=== PATIENT | male | born 1950 | race Caucasian/White ===

== ENCOUNTER → 2017-01-11 | Emergency (ER) | payer OTHER ==
[~2017-01-11] MED LIST: CEFTRIAXONE 1 GM in DEXTROSE 5%-WATER - 50 ML IVPB ONE; KETOROLAC TROMETHAMINE 15 MG/ML VIAL IVPUSH ONE; KETOROLAC TROMETHAMINE 30 MG/1 ML VIAL IVPUSH ONE; KETOROLAC TROMETHAMINE 30 MG/1 ML VIAL ONE; cefTRIAXone SODIUM 1 GM VIAL ONE; morphine CARPU-JECT 10 MG/1 ML DISP.SYRIN ONE; morphine CARPU-JECT 2 MG/1 ML DISP.SYRIN IVPUSH ONE
[2017-01-11 11:41] VITALS: BMI 31.7
--- NOTE | 2017-01-11 12:04 | PDOC ---
History of Present Illness - General Chief Complaint: Injury Stated Complaint: FALL, BACK PAIN Time Seen by Provider: 01/11/17 11:40 - History of Present Illness Initial Comments: 01/11/17 11:57 66-year-old male with a past medical history of hypertension, diabetes, with gastroparesis, hypothyroidism, and kidney stones Patient states that on Tuesday, 5 days ago, he was taking out the trash and walking up the stairs, when he slipped and fell He states he fell down 5 steps and landed on his right side, and also struck the right side of his head There was no loss of consciousness and is not having any headache at this time or concussion symptoms He is complaining of some right-sided lower back pain, which is been gradually progressive since the fall He states he did not feel the pain immediately after the fall, but is been gradually getting worse since the fall He denies any bowel or bladder symptoms He denies any numbness or tingling in his legs He denies any hematuria He denies any difficulty walking He denies any associated abdominal pain He denies any fevers or chills He denies any cancer history, or recent urinary tract instrumentation He denies any focal neurologic complaints He denies any other complaints at this time Past History - Past Medical History Allergies/Adverse Reactions: Allergies Allergy/AdvReac Type Severity Reaction Status Date / Time polymyxin B [Polymyxin B] Allergy Severe NUMNBESS Verified 01/11/17 11:34 insulin glulisine Allergy Verified 01/11/17 18:58 [From Apidra] insulin lispro [From Humalog] Allergy Verified 01/11/17 18:58 Home Medications: Ambulatory Orders Allopurinol [Zyloprim -] 100 mg PO HS 01/11/17 Cholecalciferol (Vitamin D3) [Vitamin D3 -] 2,000 unit PO DAILY 01/11/17 Cranberry Conc/Ascorbic Acid [Cranberry Concentrate Softgel] 1 each PO BID 01/11 Finasteride 5 mg PO DAILY 01/11/17 Glimepiride 2 mg PO DAILY 01/11/17 Hydrochlorothiazide [Hctz -] 25 mg PO ASDIR 01/11/17 Insulin Glargine,Hum.rec.anlog [Touwalter Solostar] 20 unit SQ ASDIR 01/11/17 Levothyroxine [Synthroid -] 25 mcg PO DAILY 01/11/17 Metformin HCl 500 mg PO BID 01/11/17 Potassium Citrate [Urocit-K 10 (NF)] 2 tab PO BID 01/11/17 Tamsulosin HCl [Flomax] 0.4 mg PO HS 01/11/17 Ubidecarenone/Vitamin E Mixed [Txs91-Kro E 200 mg-20 Unit Sfg] 1 each PO DAILY 01/11/17 Vit C/E/Zn/Coppr/Lutein/Zeaxan [Preservision Areds 2 Softgel] 1 each PO BID Anemia: No Asthma: No Cancer: No Cardiac Disorders: No COPD: No Diabetes: Yes (on oral agents) GI Disorders: Yes Disorders: Yes (kidney stones, bph) HTN: No (call was placed on 12.5 mg of hydrochlorothiazide prophylactically by his p) Kidney Stones: Yes (status post lithotripsy in 2009 and 2010) - Surgical History Orthopedic Surgery: Yes (meniscus repair left knee) - Psycho/Social/Smoking Cessation Hx Anxiety: No Suicidal Ideation: No Smoking Status: No Smoking History: Never smoked Have you smoked in the past 12 months: No Number of Cigarettes Smoked Daily: 0 If you are a former smoker, when did you quit?: 1995 Information on smoking cessation initiated: No Hx Alcohol Use: No Drug/Substance Use Hx: No Substance Use Type: None Hx Substance Use Treatment: No Review of Systems - Review of Systems Able to Perform ROS?: Yes Comments:: 01/11/17 12:04 Review of systems is as per history of present illness and otherwise negative *Physical Exam - Vital Signs Last Vital Signs Temp Pulse Resp BP Pulse Ox 98.1 F 88 18 151/83 99 01/11/17 11:30 01/11/17 11:30 01/11/17 11:30 01/11/17 11:30 01/11/17 11:30 - Physical Exam Comments: 01/11/17 12:05 Physical exam Last Vital Signs Temp Pulse Resp BP Pulse Ox 98.1 F 88 18 151/83 99 01/11/17 11:30 01/11/17 11:30 01/11/17 11:30 01/11/17 11:30 01/11/17 11:30 Patient is alert and ambulatory, and walking without difficulty Head is normocephalic and atraumatic There is no C-spine T-spine tenderness There is some R sided LS spine tenderness There is no posterior rib tenderness There is right lower paraspinal tenderness below the flank area There is no CVA tenderness There is tenderness along the posterior iliac crest without any bruising seen No bruising is seen anywhere on the back or mid axillary line The abdomen is completely soft and nontender Motor strength is 5 out of 5 in the lower extremities bilaterally There is full dorsiflexion and plantar flexion of the feet bilaterally Sensation is intact in the lower extremities bilaterally Gait is normal Completely nonfocal neurologic exam ED Treatment Course - LABORATORY CBC & Chemistry Diagram: 01/11/17 12:55 01/11/17 12:55 - RADIOLOGY Radiology Studies Ordered: Category Date Time Status PELVIS [RAD] Stat Radiology 01/11/17 11:56 Ordered RIBS RIGHT SIDE [RAD] Stat Radiology 01/11/17 11:56 Ordered SPINE-LUMBAR SACRAL [RAD] Stat Radiology 01/11/17 11:56 Ordered Medical Decision Making - Medical Decision Making 01/11/17 14:22 Fall with musculoskeletal injury He does have a history of prior kidney infection All prior urine and blood cultures reviewed and were negative No CVA tenderness on exam Right rib series No rib fracture is seen No pulmonary disease 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 Multilevel DJD No fracture Pelvis series No acute bony abnormality seen Laboratory Results - last 24 hr 01/11/17 01/11/17 01/11/17 11:58 12:55 12:55 WBC 6.2 RBC 4.51 Hgb 13.4 Hct 40.6 MCV 90.0 MCHC 32.9 RDW 12.4 Plt Count 153 MPV 8.9 Sodium 134 L Potassium 3.8 Chloride 99 Carbon Dioxide 26 Anion Gap 9 BUN 23 H D Creatinine 0.9 Creat Clearance w eGFR > 60 Random Glucose 171 H Calcium 9.6 Total Bilirubin 0.4 D AST 20 ALT 21 D Alkaline Phosphatase 45 Total Protein 6.6 Albumin 3.9 Urine Color Yellow Urine Appearance Sl cloudy Urine pH 5.5 Ur Specific [place] 1.015 Urine Protein Negative Urine Glucose (UA) Negative Urine Ketones Negative Urine Blood Trace H Urine Nitrite Negative Urine Bilirubin Negative Urine Urobilinogen 0.2 e.u/dl Ur Leukocyte Esterase 1+ H Urine RBC 0-3 Urine WBC 3-5 Ur Epithelial Cells Few Urine Bacteria Moderate UA with reports of "moderate" bacteria, however 0-3 reds and 3-5 white cells CBC and CMP normal without elevated white count Will check CT scan of the abdomen and pelvis to look for evidence of pyelonephritis, and check spine due to tenderness Patient is on metformin, would not give IV contrast at this time 01/11/17 15:52 CT scan of the abdomen and pelvis- The right kidney shows a 1.4 cm cyst, and medial to it a stone measuring 5-6 mm , with an area of adjacent scarring This is similar to the appearance of his kidney on a prior scan There is no hydronephrosis and no obstruction There is a possible fracture line involving the L2 vertebral body without displacement, not seen on prior exam-MRI of the L-spine recommended The radiologist commented that he attempted to call me in the emergency department to discuss the case I did call the radiologist, who states that the cider press operator was transferring him to a number that was ringing and not being answered No calls were received from this radiologist here at [facility] ED, but I did call radiologist myself and speak to him Will get MRI of the lumbar spine 01/11/17 18:20 MRI of the lumbar spine without contrast There is an L2 fracture, anteriorly/superiorly, with bone marrow edema, and without compromise of the spinal canal There is also bone marrow edema in the upper one third of the L3 vertebral body , mainly on the right side, that may be due to degenerative disc disease versus minimal compression of the L3 superior endplate There is multilevel disc disease and bulging With some nerve impingement There is mild degenerative central spinal canal stenosis at the L4-L5 level 01/11/17 18:[address] Zapien -[facility] - accepts patient in transfer to [facility] Will arrange ALS transport *DC/Admit/Observation/Transfer Diagnosis at time of Disposition: Compression fracture of L3 lumbar vertebra L2 vertebral fracture Qualifiers: Encounter type: initial encounter - Discharge Dispostion Disposition: TRANSFER ACUTE CARE/OTHER HOSP Condition at time of disposition: Stable - Referrals Referrals: Tom Palmer MD [Primary Care Provider] - - Transfer to Acute Care Facility Receiving Facility: [facility]. Accepting Physician:: Dr Zapien - Neurosurg./Spine surg.
[2017-01-11 12:09] LABS: PH,URINE 5.5 (4.5-8); URINE BILIRUBIN Negative (NEGATIVE); URINE GLUCOSE (UA) Negative (NEGATIVE); URINE KETONE Negative (NEGATIVE); URINE NITRITE Negative (NEGATIVE); URINE PROTEIN Negative (NEGATIVE); URINE UROBILINOGEN 0.2 E.U/dl (0.2-1.0)
[2017-01-11 12:10] LABS: URINE APPEARANCE SL CLOUDY; URINE COLOR YELLOW; URINE LEUK ESTERASE 1+ (NEGATIVE)
[2017-01-11 12:11] LABS: URINE BLOOD TRACE (NEGATIVE); URINE RBC 0-3 /hpf (0-3)
[2017-01-11 12:12] LABS: URINE BACTERIA MODERATE /hpf (NEGATIVE)
[2017-01-11 13:02] LABS: MCH 29.6 pg (25.7-33.7); MCHC 32.9 g/dl (32.0-35.9); MEAN PLT VOLUME 8.9 fl (7.5-11.1); PLATELET COUNT 153 K/MM3 (134-434); RDW 12.4 % (11.9-15.9); WHITE BLOOD COUNT 6.2 K/mm3 (4.0-10.0)
[2017-01-11 13:19] LABS: ALBUMIN 3.9 g/dl (3.5-5.0); ALK PHOS 45 U/L (32-92); ANION GAP 9 (8-16); BILIRUBIN,TOTAL 0.4 mg/dl (0.2-1.0); CALCIUM 9.6 mg/dl (8.4-10.2); CO2 26 mmol/L (22-28); CREATININE 0.9 mg/dl (0.6-1.3); GLUCOSE,RANDOM 171 mg/dl (74-106); SGOT/AST 20 U/L (10-42); SGPT/ALT 21 U/L (10-40); TOT PROT 6.6 g/dl (6.4-8.3)
[2017-01-11 20:10] VITALS: BP 132/76; PULSE 81; TEMP 98.1
== END | disposition short-term general hospital (02) ==
LOC: SUPCPDRO 11:30 → FER 11:30
PROC: 3E03329 Introduction of Other Anti-infective into Peripheral Vein, Percutaneous Approach (ICD-10-PCS; principal; 2017-01-11)
PROC: 3E033GC Introduction of Other Therapeutic Substance into Peripheral Vein, Percutaneous Approach (ICD-10-PCS; 2017-01-11)
PROC: 3E033NZ Introduction of Analgesics, Hypnotics, Sedatives into Peripheral Vein, Percutaneous Approach (ICD-10-PCS; 2017-01-11)
PROC: 3E0333Z Introduction of Anti-inflammatory into Peripheral Vein, Percutaneous Approach (ICD-10-PCS; 2017-01-11)
DX: S32.039A Unspecified fracture of third lumbar vertebra, initial encounter for closed fracture (principal); I10 Essential (primary) hypertension; E11.9 Type 2 diabetes mellitus without complications; E03.9 Hypothyroidism, unspecified; Z87.442 Personal history of urinary calculi; Z87.891 Personal history of nicotine dependence
CPT/HCPCS: 36415; 71101-TC-RT; 72100-TC; 72148-TC; 72170-TC; 74176-TC; 80053; 81003; 81015; 85027; 87086; 99285-25

== ENCOUNTER 2018-01-09 19:54 | Emergency (ER) | payer OTHER ==
--- NOTE | 2018-01-09 20:19 | PDOC ---
Rapid Medical Evaluation Time Seen by Provider: 01/09/18 20:15 Medical Evaluation: Allergies Allergy/AdvReac Type Severity Reaction Status Date / Time polymyxin B [Polymyxin B] Allergy Severe NUMNBESS Verified 01/11/17 11:34 insulin glulisine Allergy Verified 01/11/17 18:58 [From Apidra] insulin lispro [From Humalog] Allergy Verified 01/11/17 18:58 01/09/18 20:16 I have performed a brief in-person evaluation of this patient. The patient presents with a chief complaint of: slip and fall yesterday morning in driveway, denies injury to head, no LOC, not taking a/c, hit R side of stomach, R leg "is numb", R groin pain, hx of chronic back pain "nothing new " Pertinent physical exam findings: tenderness to R hip I have ordered the following: hip/pelvix x-ray The patient will proceed to the ED for further evaluation. Discharge Disposition - Diagnosis Fall - Referrals - Patient Instructions - Post Discharge Activity
[2018-01-09 20:24] VITALS: BP 123/77; PULSE 115; TEMP 98.8; BMI 29.2
[2018-01-09 20:37] LABS: HEMATOCRIT 43.4 % (35.4-49); HEMOGLOBIN 14.8 GM/dL (11.7-16.9); MCH 30.8 pg (25.7-33.7); MCHC 34.1 g/dl (32.0-35.9); MEAN CELL VOLUME 90.4 fl (80-96); MEAN PLT VOLUME 9.2 fl (7.5-11.1); PLATELET COUNT 154 K/MM3 (134-434); RDW 13.9 % (11.9-15.9); WHITE BLOOD COUNT 17.5 K/mm3 (4.0-10.0)
[2018-01-09 20:39] LABS: URINE APPEARANCE CLOUDY; URINE BILIRUBIN NEGATIVE (NEGATIVE); URINE BLOOD 2+ (NEGATIVE); URINE COLOR YELLOW; URINE GLUCOSE (UA) 1+ (NEGATIVE); URINE KETONE TRACE (NEGATIVE); URINE NITRITE POSITIVE (NEGATIVE); URINE UROBILINOGEN NEGATIVE mg/dL (0.2-1.0)
[2018-01-09 20:40] LABS: URINE LEUK ESTERASE 2+ (NEGATIVE); URINE PROTEIN 1+ (NEGATIVE)
[2018-01-09 20:40] LABS: ADD RBC MORPHOLOGY YES
[2018-01-09 20:56] LABS: EPI CELLS FEW /HPF (FEW); URINE BACTERIA FEW /hpf (NONE SEEN); URINE MUCUS MODERATE
[2018-01-09 20:57] LABS: INR 1.24 (0.82-1.09)
[2018-01-09 21:07] LABS: ALBUMIN 3.7 g/dl (3.4-5.0); ANION GAP 9 (8-16); BLOOD UREA NITROGEN 10 mg/dL (7-18); CALCIUM 8.2 mg/dL (8.5-10.1); CHLORIDE 100 mmol/L (98-107); CO2 26 mmol/L (21-32); GLUCOSE,RANDOM 167 mg/dL (74-106); POTASSIUM 4.1 mmol/L (3.5-5.1); SODIUM 135 mmol/L (136-145)
[2018-01-09 21:11] LABS: ALK PHOS 62 U/L (45-117); SGOT/AST 9 U/L (15-37); SGPT/ALT 14 U/L (12-78); TOT PROT 7.3 g/dl (6.4-8.2)
[2018-01-09] MEDS ORDERED: MORPHINE SULFATE 10 MG/1 ML *VIAL ONE (21:38)
[2018-01-09] MEDS ORDERED: morphine CARPU-JECT 2 MG/1 ML DISP.SYRIN IVPUSH ONE (21:47)
[2018-01-09] MEDS ORDERED: SODIUM CHLORIDE 1,000 ML IV STA (21:49)
[2018-01-09 22:00] LABS: PLATELET ESTIMATE ADEQUATE
--- NOTE | 2018-01-09 23:03 | PDOC ---
History of Present Illness - General History Source: Patient Exam Limitations: No Limitations - History of Present Illness Initial Comments: 01/09/18 23:17 The patient is a 67 year old male, with a significant past medical history of, who presents to the emergency department with pain to right lower abdominal quadrant, right hip, and right leg, as well as, pain and swelling to right groin since falling on ice yesterday. The patient states he slipped and fell on an icy road yesterday. He reports landing onto his right side without head trauma or LOC. He reports pain to his right lower abdomen and right hip. He also reports pain to his right leg with some associated intermittent numbness The patient denies chest pain, shortness of breath, headache and dizziness. The patient denies fever, chills, nausea, vomit, diarrhea and constipation. The patient denies dysuria, frequency, urgency and hematuria. PCP - Dr. Tom Palmer <Roseanne Gunter - Last Filed: 01/10/18 01:18> <Nakita Perez - Last Filed: 01/10/18 01:58> - General Chief Complaint: Injury Stated Complaint: PAIN Time Seen by Provider: 01/09/18 20:15 Past History <Roseanne Gunter - Last Filed: 01/10/18 01:18> - Past Medical History Anemia: No Asthma: No Cancer: No Cardiac Disorders: No COPD: No Diabetes: Yes (on oral agents) GI Disorders: Yes Disorders: Yes (kidney stones, bph) HTN: No (call was placed on 12.5 mg of hydrochlorothiazide prophylactically by his p) Kidney Stones: Yes (status post lithotripsy in 2009 and 2010) Thyroid Disease: Yes - Surgical History Orthopedic Surgery: Yes (meniscus repair left knee) - Immunization History Immunization Up to Date: No - Suicide/Smoking/Psychosocial Hx Smoking Status: No Smoking History: Never smoked Have you smoked in the past 12 months: No Number of Cigarettes Smoked Daily: 0 If you are a former smoker, when did you quit?: 1995 Information on smoking cessation initiated: No Hx Alcohol Use: No Drug/Substance Use Hx: No Substance Use Type: None Hx Substance Use Treatment: No <Nakita Perez - Last Filed: 01/10/18 01:58> - Past Medical History Allergies/Adverse Reactions: Allergies Allergy/AdvReac Type Severity Reaction Status Date / Time polymyxin B [Polymyxin B] Allergy Severe NUMNBESS Verified 01/11/17 11:34 insulin glulisine Allergy Verified 01/11/17 18:58 [From Apidra] insulin lispro [From Humalog] Allergy Verified 01/11/17 18:58 Home Medications: Ambulatory Orders Allopurinol [Zyloprim -] 100 mg PO HS 01/11/17 Cholecalciferol (Vitamin D3) [Vitamin D3 -] 2,000 unit PO DAILY 01/11/17 Cranberry Conc/Ascorbic Acid [Cranberry Concentrate Softgel] 1 each PO BID 01/11 Finasteride 5 mg PO DAILY 01/11/17 Glimepiride 2 mg PO DAILY 01/11/17 Hydrochlorothiazide [Hctz -] 25 mg PO ASDIR 01/11/17 Insulin Glargine,Hum.rec.anlog [Toujeo Solostar] 20 unit SQ ASDIR 01/11/17 Levothyroxine [Synthroid -] 25 mcg PO DAILY 01/11/17 Metformin HCl 500 mg PO BID 01/11/17 Potassium Citrate [Urocit-K 10 (NF)] 2 tab PO BID 01/11/17 Tamsulosin HCl [Flomax] 0.4 mg PO HS 01/11/17 Ubidecarenone/Vitamin E Mixed [Yrq59-Zix E 200 mg-20 Unit Sfg] 1 each PO DAILY 01/11/17 Vit C/E/Zn/Coppr/Lutein/Zeaxan [Preservision Areds 2 Softgel] 1 each PO BID levoFLOXacin [Levaquin -] 500 mg PO DAILY #7 tablet 01/10/18 Review of Systems - Review of Systems Able to Perform ROS?: Yes Comments:: 01/09/18 23:15 CONSTITUTIONAL: Absent: fever, chills, diaphoresis, generalized weakness, malaise, loss of appetite HEENT: Absent: rhinorrhea, nasal congestion, throat pain, throat swelling, difficulty swallowing, mouth swelling, ear pain, eye pain, visual Changes CARDIOVASCULAR: Absent: chest pain, syncope, palpitations, irregular heart rate, lightheadedness , peripheral edema RESPIRATORY: Absent: cough, shortness of breath, dyspnea with exertion, orthopnea, wheezing, stridor, hemoptysis GASTROINTESTINAL: (+) RLQ pain. Absent: abdominal distension, nausea, vomiting, diarrhea, constipation, melena, hematochezia GENITOURINARY: Absent: dysuria, frequency, urgency, hesitancy, hematuria, flank pain, genital pain MUSCULOSKELETAL: (+) right hip and leg pain with intermittent right leg numbness. Absent: arthralgia, joint swelling SKIN: Absent: rash, itching, pallor HEMATOLOGIC/IMMUNOLOGIC: Absent: easy bleeding, easy bruising, lymphadenopathy, frequent infections ENDOCRINE: Absent: unexplained weight gain, unexplained weight loss, heat intolerance, cold intolerance NEUROLOGIC: Absent: headache, focal weakness, dizziness, unsteady gait, seizure, mental status changes, bladder or bowel incontinence PSYCHIATRIC: Absent: anxiety, depression, suicidal or homicidal ideation, hallucinations. <Roseanne Gunter - Last Filed: 01/10/18 01:18> *Physical Exam - Vital Signs Last Vital Signs Temp Pulse Resp BP Pulse Ox 98.8 F 115 H 20 123/77 98 01/09/18 20:20 01/09/18 20:20 01/09/18 20:20 01/09/18 20:20 01/09/18 20:20 - Physical Exam Comments: 01/09/18 23:16 GENERAL: Well developed, well nourished. Awake and alert. No acute distress. HEENT: Normocephalic, atraumatic. PERRLA, EOMI. No conjunctival pallor. Sclera are non- icteric. Moist mucous membranes. Oropharynx is clear. NECK: Supple. Full ROM. No JVD. Carotid pulses 2+ and symmetric, without bruits. No thyromegaly. No lymphadenopathy. CARDIOVASCULAR: Regular rate and rhythm. No murmurs, rubs, or gallops. Distal pulses are 2+ and symmetric. PULMONARY: No evidence of respiratory distress. Lungs clear to auscultation bilaterally. No wheezing, rales or rhonchi. ABDOMINAL: Soft. Non-tender. Non-distended. No rebound or guarding. No organomegaly. Normoactive bowel sounds. MUSCULOSKELETAL (+) pain to palpation of L5 region, pain with right leg raise. Normal range of motion at all joints. No bony deformities. No CVA tenderness. EXTREMITIES: No cyanosis. No clubbing. No edema. No calf tenderness. SKIN: (+) 3cm area of ecchymosis to right lower abdomen. Warm and dry. Normal capillary refill. No rashes. No jaundice. NEUROLOGICAL: Alert, awake, appropriate. Cranial nerves 2-12 intact. Normoreflexic in the upper and lower extremities. Normal speech. Toes are down-going bilaterally. Gait is normal without ataxia. PSYCHIATRIC: Cooperative. Good eye contact. Appropriate mood and affect. <Roseanne Gunter - Last Filed: 01/10/18 01:18> - Vital Signs Last Vital Signs Temp Pulse Resp BP Pulse Ox 98.8 F 115 H 20 123/77 98 01/09/18 20:20 01/09/18 20:20 01/09/18 20:20 01/09/18 20:20 01/09/18 20:20 <Nakita Perez - Last Filed: 01/10/18 01:58> ED Treatment Course - LABORATORY CBC & Chemistry Diagram: 01/09/18 20:28 01/09/18 20:28 - ADDITIONAL ORDERS Additional order review: Laboratory Results 01/09/18 01/09/18 01/09/18 20:33 20:28 20:28 PT with INR 14.00 H INR 1.24 H Sodium 135 L Potassium 4.1 Chloride 100 Carbon Dioxide 26 Anion Gap 9 BUN 10 Creatinine 1.0 Creat Clearance w eGFR > 60 Random Glucose 167 H D Calcium 8.2 L Total Bilirubin 1.0 D AST 9 L ALT 14 D Alkaline Phosphatase 62 Creatine Kinase 41 Troponin I < 0.02 Total Protein 7.3 Albumin 3.7 Urine Color Yellow Urine Appearance Cloudy Urine pH 7.0 Ur Specific [place] 1.018 Urine Protein 1+ H Urine Glucose (UA) 1+ H Urine Ketones Trace H Urine Blood 2+ H Urine Nitrite Positive Urine Bilirubin Negative Urine Urobilinogen Negative Ur Leukocyte Esterase 2+ H Urine WBC (Auto) 576 Urine RBC (Auto) 220 Ur Epithelial Cells Few Urine Bacteria Few Urine Mucus Moderate 01/09/18 20:28 RBC 4.80 MCV 90.4 MCHC 34.1 RDW 13.9 MPV 9.2 Neutrophils % No Result Required. Lymphocytes % No Result Required. - RADIOLOGY Radiograph Interpretation: EXAM: CT abdomen and pelvis without contrast HISTORY: Pain. Patient fell. COMPARISON: None. FINDINGS: No bowel obstruction, free air, or free fluid. There is left colon and sigmoid diverticulosis. No diverticulitis or colitis. Normal appendix. Nonobstructing right renal stone and right renal cyst. No renal ureteral obstruction. Urinary bladder is somewhat distended. No acute abnormalities of the liver, spleen, pancreas, adrenal glands. No obvious gallbladder abnormalities. Osseous structures are intact. Ki Galan MD 01/10/2018 00:42 EST EXAM: LUMBAR SPINE CT W/O CONTRAST HISTORY: L5 pain COMPARISON: None. FINDINGS: Negative for lumbar spinal fracture or malalignment. Degenerative changes. Ki Galan MD 01/10/2018 01:13 EST - Medications Given in the ED: ED Medications Discontinued Medications Generic Name Dose Route Start Last Admin Trade Name Freq PRN Reason Stop Dose Admin Sodium Chloride 1,000 mls @ 1,000 mls/hr 01/09/18 21:49 01/09/18 21:54 Normal Saline - IV 01/09/18 22:48 1,000 mls/hr ASDIR STA Administration Morphine Sulfate 2 mg 01/09/18 21:47 01/09/18 21:54 Morphine Injection - IVPUSH 01/09/18 21:48 2 mg ONCE ONE Administration <Roseanne Gunter - Last Filed: 01/10/18 01:18> - LABORATORY CBC & Chemistry Diagram: 01/09/18 20:28 01/09/18 20:28 - ADDITIONAL ORDERS Additional order review: Laboratory Results 01/09/18 01/09/18 01/09/18 20:33 20:28 20:28 PT with INR 14.00 H INR 1.24 H Sodium 135 L Potassium 4.1 Chloride 100 Carbon Dioxide 26 Anion Gap 9 BUN 10 Creatinine 1.0 Creat Clearance w eGFR > 60 Random Glucose 167 H D Calcium 8.2 L Total Bilirubin 1.0 D AST 9 L ALT 14 D Alkaline Phosphatase 62 Creatine Kinase 41 Troponin I < 0.02 Total Protein 7.3 Albumin 3.7 Urine Color Yellow Urine Appearance Cloudy Urine pH 7.0 Ur Specific [place] 1.018 Urine Protein 1+ H Urine Glucose (UA) 1+ H Urine Ketones Trace H Urine Blood 2+ H Urine Nitrite Positive Urine Bilirubin Negative Urine Urobilinogen Negative Ur Leukocyte Esterase 2+ H Urine WBC (Auto) 576 Urine RBC (Auto) 220 Ur Epithelial Cells Few Urine Bacteria Few Urine Mucus Moderate 01/09/18 20:28 RBC 4.80 MCV 90.4 MCHC 34.1 RDW 13.9 MPV 9.2 Neutrophils % No Result Required. Lymphocytes % No Result Required. - RADIOLOGY Radiology Studies Ordered: Category Date Time Status ABDOMEN & PELVIS CT W/O CONTR [CT] Stat CT Scan 01/09/18 22:[address] W/O CONTRAST [CT] Stat CT Scan 01/09/18 22:03 Taken - Medications Given in the ED: ED Medications Discontinued Medications Generic Name Dose Route Start Last Admin Trade Name Freq PRN Reason Stop Dose Admin Sodium Chloride 1,000 mls @ 1,000 mls/hr 01/09/18 21:49 01/09/18 21:54 Normal Saline - IV 01/09/18 22:48 1,000 mls/hr ASDIR STA Administration Morphine Sulfate 2 mg 01/09/18 21:47 01/09/18 21:54 Morphine Injection - IVPUSH 01/09/18 21:48 2 mg ONCE ONE Administration <Nakita Perez - Last Filed: 01/10/18 01:58> Medical Decision Making - Medical Decision Making 01/10/18 01:53 6 67-year-old male slid down his drivewayo male fell and slide down his driveway on his right side and has c/o rt hip pain,lumbar pain ,rt abd discomfort and suprapubic pain ct scan lumbar spine -no acute fractures ct scan abd.pel no fractures,normal appendix,normal kidney with small renal cyst and renal stone,no hydro,normal spleen ua +uti pt started on antibiotics and told to see Dr Shireen Webb (his urologist ) this week <Nakita Perez - Last Filed: 01/10/18 01:58> *DC/Admit/Observation/Transfer - Attestations Scribe Attestion: 01/09/18 23:18 Documentation prepared by Roseanne Gunter, acting as medical physics teacher for Nakita Perez MD <Roseanne Gunter - Last Filed: 01/10/18 01:18> <Nakita Perez - Last Filed: 01/10/18 01:58> Diagnosis at time of Disposition: Musculoskeletal strain Fall Qualifiers: Encounter type: initial encounter Qualified Code(s): W19.XXXA - Unspecified fall, initial encounter UTI (urinary tract infection) Qualifiers: Urinary tract infection type: site unspecified Hematuria presence: without hematuria Qualified Code(s): N39.0 - Urinary tract infection, site not specified - Discharge Dispostion Disposition: HOME Condition at time of disposition: Stable - Prescriptions Prescriptions: levoFLOXacin [Levaquin -] 500 mg PO DAILY #7 tablet - Referrals Referrals: Tom Palmer MD [Primary Care Provider] - - Patient Instructions Printed Discharge Instructions: Calf Muscle Strain, DI for Urinary Tract Infection (UTI), DI for Contusion Additional Instructions: please see your doctor this week return for any worsening symptoms - Post Discharge Activity
[2018-01-10] MEDS ORDERED: levoFLOXacin 750 MG TABLET PO ONE (01:31)
--- NOTE | 2018-01-10 08:54 | EKG ---
Test Reason : Blood Pressure : / mmHG Vent. Rate : 099 BPM Atrial Rate : 099 BPM P-R Int : 144 ms QRS Dur : 082 ms QT Int : 322 ms P-R-T Axes : 033 006 030 degrees QTc Int : 413 ms NORMAL SINUS RHYTHM NORMAL ECG WHEN COMPARED WITH ECG OF 27-NOV-2015 11:23, NO SIGNIFICANT CHANGE WAS FOUND Confirmed by Quentin Cm MD ([id number]) on 01/10/2018 8:53:31 AM Referred By: Confirmed By:Quentin Cm MD
== END 2018-01-10 01:58 | disposition home or self-care (01) ==
LOC: JER 19:54
PROC: 3E033NZ Introduction of Analgesics, Hypnotics, Sedatives into Peripheral Vein, Percutaneous Approach (ICD-10-PCS; principal; 2018-01-09)
DX: N39.0 Urinary tract infection, site not specified (principal); S39.012A Strain of muscle, fascia and tendon of lower back, initial encounter; S30.1XXA Contusion of abdominal wall, initial encounter; W00.0XXA Fall on same level due to ice and snow, initial encounter; Y93.89 Activity, other specified; Y92.014 Private driveway to single-family (private) house as the place of occurrence of the external cause; Y99.8 Other external cause status; E11.9 Type 2 diabetes mellitus without complications; Z79.84 Long term (current) use of oral hypoglycemic drugs; N40.0 Benign prostatic hyperplasia without lower urinary tract symptoms; Z87.442 Personal history of urinary calculi
CPT/HCPCS: 36415; 72131-TC; 73523-TC-FY; 74176-TC; 80053; 81003; 81015; 82550; 84484; 85025; 85610; 87086; 87186; 93005; 93010; 99282-25

== ENCOUNTER 2022-10-12 11:45 | Inpatient (IN) | payer OTHER ==
[2022-10-12 13:57] LABS: HEMATOCRIT 35.2 % (35.4-49); HEMOGLOBIN 11.8 GM/dL (11.7-16.9); MCH 29.5 pg (25.7-33.7); MCHC 33.5 g/dl (32.0-35.9); MEAN CELL VOLUME 88.2 fl (80-96); MEAN PLT VOLUME 8.3 fl (7.5-11.1); PLATELET COUNT 254 10^3/uL (134-434); RBC 3.99 M/mm3 (4.00-5.60); RDW 14.2 % (11.9-15.9); WHITE BLOOD COUNT 7.3 K/mm3 (4.0-10.0)
[2022-10-12 14:32] LABS: ALBUMIN 3.7 g/dl (3.4-5.0); CALCIUM 9.3 mg/dL (8.5-10.1)
[2022-10-12 14:35] LABS: CREATININE 1.8 mg/dL (0.55-1.3)
[2022-10-12 14:37] LABS: TOT PROT 8.2 g/dl (6.4-8.2)
[2022-10-12 14:46] LABS: BILIRUBIN,TOTAL 0.4 mg/dL (0.2-1)
[2022-10-12] MEDS ORDERED: SODIUM CHLORIDE 1,000 ML IV SCH (18:30)
[2022-10-12 20:53] VITALS: BMI 27.2
[2022-10-12] MEDS: INSULIN SLIDING SCALE (NOVOLOG) 1 VIAL SQ SCH (21:29)
[2022-10-12] MEDS: ACETAMINOPHEN 325 MG TABLET (FP) PO PRN (21:33)
[2022-10-12] MEDS ORDERED: INSULIN (LEVEMIR) 100 UNITS/ML UNITS SQ SCH (22:00)
[2022-10-12 23:48] LABS: EPI CELLS 0 /uL (0-25.1); HYALINE CASTS 1 /uL (0-3.1); URINE APPEARANCE CLEAR; URINE BILIRUBIN NEGATIVE (NEGATIVE); URINE COLOR YELLOW; URINE GLUCOSE (UA) NEGATIVE (NEGATIVE); URINE KETONE 1+ (NEGATIVE); URINE LEUK ESTERASE 3+ (NEGATIVE); URINE NITRITE POSITIVE (NEGATIVE); URINE PROTEIN TRACE (NEGATIVE); URINE RBC 29 /uL (0-23.9); URINE UROBILINOGEN 0.2 mg/dL (0.2-1.0); URINE WBC 723 /uL (0-25.8)
[2022-10-13] MEDS: ACETAMINOPHEN 325 MG TABLET (FP) PO PRN ×2 (03:37→10:16)
[2022-10-13] MEDS: INSULIN SLIDING SCALE (NOVOLOG) 1 VIAL SQ SCH ×4 (06:13→23:18)
[2022-10-13] MEDS ORDERED: LEVOTHYROXINE NA 25 MCG TABLET (FP) PO SCH (07:00)
[2022-10-13] MEDS ORDERED: TAMSULOSIN HCL 0.4 MG CAP PO SCH (08:30)
[2022-10-13] MEDS ORDERED: FINASTERIDE 5 MG TABLET (FP) PO SCH (10:00)
[2022-10-13] MEDS ORDERED: ALLOPURINOL 100 MG TABLET (FP) PO SCH (10:00)
[2022-10-13 11:14] LABS: CALCIUM 8.6 mg/dL (8.5-10.1)
[2022-10-13 11:18] LABS: CREATININE 1.5 mg/dL (0.55-1.3)
[2022-10-13 11:20] LABS: BILIRUBIN,TOTAL 0.6 mg/dL (0.2-1); TOT PROT 6.8 g/dl (6.4-8.2)
[2022-10-13] MEDS ORDERED: ONDANSETRON 4 MG/2 ML VIAL IVPUSH PRN ×2 (16:30→17:24)
[2022-10-13] MEDS ORDERED: FENTANYL CITRATE/PF 50 MCG/ML VIAL ONE (16:37)
[2022-10-13] MEDS ORDERED: PROPOFOL 20 ML ONE (16:37)
[2022-10-13] MEDS ORDERED: ONDANSETRON 4 MG/2 ML VIAL ONE (16:38)
[2022-10-13] MEDS ORDERED: ceFAZolin SODIUM 1 GM VIAL ONE (16:38)
[2022-10-13] MEDS ORDERED: DEXAMETHASONE SOD PHOSPHATE 4 MG/1 ML VIAL ONE (16:38)
[2022-10-13] MEDS ORDERED: ceFAZolin SODIUM 1 GM VIAL IVPB ONE (16:47)
[2022-10-13] MEDS ORDERED: ACETAMINOPHEN 325 MG TABLET (FP) PO PRN (17:24)
[2022-10-13] MEDS: SODIUM CHLORIDE 1,000 ML IV SCH (18:34)
[2022-10-13] MEDS ORDERED: INSULIN (NOVOLOG) ASPART 100 UNITS/ML 10ML VIAL ONE (21:54)
[2022-10-13] MEDS ORDERED: INSULIN (LEVEMIR) 100 UNITS/ML UNITS SQ SCH (22:00)
[2022-10-13 22:19] VITALS: RESP 20
[2022-10-14] MEDS ORDERED: INSULIN (LEVEMIR) 100 UNITS/ML UNITS SQ SCH (07:00)
[2022-10-14] MEDS: INSULIN SLIDING SCALE (NOVOLOG) 1 VIAL SQ SCH ×4 (07:04→21:08)
[2022-10-14] MEDS: LEVOTHYROXINE NA 25 MCG TABLET (FP) PO SCH (07:05)
[2022-10-14] MEDS: INSULIN (LEVEMIR) 100 UNITS/ML UNITS SQ SCH (07:05)
[2022-10-14] MEDS: TAMSULOSIN HCL 0.4 MG CAP PO SCH (09:16)
[2022-10-14] MEDS: FINASTERIDE 5 MG TABLET (FP) PO SCH (09:16)
[2022-10-14] MEDS: ALLOPURINOL 100 MG TABLET (FP) PO SCH (09:16)
[2022-10-14] MEDS: SODIUM CHLORIDE 1,000 ML IV SCH (09:26)
[2022-10-14 10:01] LABS: HEMATOCRIT 32.4 % (35.4-49); HEMOGLOBIN 11.2 GM/dL (11.7-16.9); MCH 30.4 pg (25.7-33.7); MCHC 34.4 g/dl (32.0-35.9); MEAN CELL VOLUME 88.5 fl (80-96); MEAN PLT VOLUME 7.9 fl (7.5-11.1); PLATELET COUNT 216 10^3/uL (134-434); RBC 3.66 M/mm3 (4.00-5.60); RDW 14.5 % (11.9-15.9); WHITE BLOOD COUNT 10.5 K/mm3 (4.0-10.0)
[2022-10-14 10:14] LABS: CALCIUM 8.7 mg/dL (8.5-10.1)
[2022-10-14 10:15] LABS: BLOOD UREA NITROGEN 14.6 mg/dL (7-18)
[2022-10-14 10:18] LABS: CREATININE 1.3 mg/dL (0.55-1.3)
[2022-10-15] MEDS: INSULIN (LEVEMIR) 100 UNITS/ML UNITS SQ SCH (06:08)
[2022-10-15] MEDS: INSULIN SLIDING SCALE (NOVOLOG) 1 VIAL SQ SCH ×2 (06:09→12:21)
[2022-10-15] MEDS: LEVOTHYROXINE NA 25 MCG TABLET (FP) PO SCH (06:10)
[2022-10-15] MEDS: TAMSULOSIN HCL 0.4 MG CAP PO SCH (10:27)
[2022-10-15] MEDS: ALLOPURINOL 100 MG TABLET (FP) PO SCH (10:27)
[2022-10-15] MEDS: FINASTERIDE 5 MG TABLET (FP) PO SCH (10:27)
[2022-10-15 13:19] VITALS: BP 114/62; PULSE 88; TEMP 99.1
[2022-10-20 10:07] LABS: CA OXALATE MONOHYDR. 10 % (.); SIZE 7x5 mm (.); URIC ACID 90 % (.); WEIGHT 99 mg (.)
== END 2022-10-15 13:56 | disposition home or self-care (01) | DRG 661 ==
LOC: JER 11:45 → JERBED 15:36 → J8W 20:06
PROVIDERS: ADMIT Family Medicine; ATTEND Family Medicine
PROC: 0TC68ZZ Extirpation of Matter from Right Ureter, Via Natural or Artificial Opening Endoscopic (ICD-10-PCS; 2022-10-13)
PROC: BT1D1ZZ Fluoroscopy of Right Kidney, Ureter and Bladder using Low Osmolar Contrast (ICD-10-PCS; 2022-10-13)
PROC: 0T768DZ Dilation of Right Ureter with Intraluminal Device, Via Natural or Artificial Opening Endoscopic (ICD-10-PCS; principal; 2022-10-13 15:00)
DX: N13.2 Hydronephrosis with renal and ureteral calculous obstruction (principal); N17.9 Acute kidney failure, unspecified; E11.65 Type 2 diabetes mellitus with hyperglycemia; E03.9 Hypothyroidism, unspecified; I10 Essential (primary) hypertension; E78.5 Hyperlipidemia, unspecified; K21.9 Gastro-esophageal reflux disease without esophagitis; N40.0 Benign prostatic hyperplasia without lower urinary tract symptoms
CPT/HCPCS: 36415; 74176-TC; 76000-TC-FY; 76870-TC; 80048; 80053; 81003; 82360; 82436; 82570; 82962; 83605; 83690; 84133; 84300; 85027; 87086; 87186; 88300-TC; 94760; 99285-25; C1758; C2617; C9803-CS; U0003; U0005

== ENCOUNTER 2022-10-29 04:20 | Inpatient (IN) | payer OTHER ==
[2022-10-28 08:56] VITALS: BMI 31.0
[2022-10-29] MEDS ORDERED: FENTANYL CITRATE/PF 50 MCG/ML VIAL ONE ×7 (11:28→15:44)
[2022-10-29] MEDS ORDERED: MIDAZOLAM HCL 2 MG/2 ML SINGLE DOSE VIAL ONE ×2 (11:28→14:00)
[2022-10-29] MEDS ORDERED: PHENYLEPHRINE HCL 10 MG/1 ML SINGLE DOSE VIAL ONE (11:29)
[2022-10-29] MEDS ORDERED: PROPOFOL 20 ML ONE ×2 (11:29→12:05)
[2022-10-29] MEDS ORDERED: SUCCINYLCHOLINE CHLORIDE 200 MG/10 ML SYRINGE ONE (11:30)
[2022-10-29] MEDS ORDERED: GLYCOPYRROLATE 0.2 MG/1 ML VIAL ONE (12:19)
[2022-10-29] MEDS ORDERED: ceFAZolin SODIUM 1 GM VIAL IVPB ONE (12:21)
[2022-10-29] MEDS ORDERED: ONDANSETRON 4 MG/2 ML VIAL ONE ×2 (12:21→14:38)
[2022-10-29] MEDS ORDERED: ceFAZolin SODIUM 1 GM VIAL ONE (12:21)
[2022-10-29] MEDS ORDERED: DEXAMETHASONE SOD PHOSPHATE 4 MG/1 ML VIAL ONE (12:21)
[2022-10-29] MEDS ORDERED: ALPRAZolam 0.25 MG TABLET PO PRN (13:04)
[2022-10-29] MEDS ORDERED: ALBUTEROL SO4 0.083% IH SOL 2.5 MG/3 ML VIAL.NEB. NEB ONE (13:24)
[2022-10-29] MEDS ORDERED: FENTANYL CITRATE/PF 50 MCG/ML VIAL IVPUSH PRN (14:01)
[2022-10-29] MEDS ORDERED: MIDAZOLAM HCL 2 MG/2 ML SINGLE DOSE VIAL IVPUSH ONE (14:02)
[2022-10-29] MEDS ORDERED: ACETAMINOPHEN 1000 MG/100 ML BAG IVPB ONE (15:22)
[2022-10-29 15:33] LABS: HEMATOCRIT 36.6 % (35.4-49); HEMOGLOBIN 11.8 GM/dL (11.7-16.9); MCH 28.9 pg (25.7-33.7); MCHC 32.2 g/dl (32.0-35.9); MEAN PLT VOLUME 7.9 fl (7.5-11.1); PLATELET COUNT 262 10^3/uL (134-434); RBC 4.07 M/mm3 (4.00-5.60); RDW 16.2 % (11.9-15.9); WHITE BLOOD COUNT 6.8 K/mm3 (4.0-10.0)
[2022-10-29 15:40] LABS: INR 1.14 (0.83-1.09); PROTHROMBIN TIME (PATIENT) 13.1 SEC (9.7-13.0)
[2022-10-29 15:43] LABS: ACTIVATED PTT 25.1 SECONDS (25.2-36.5)
[2022-10-29 15:57] LABS: BLOOD UREA NITROGEN 14.8 mg/dL (7-18); CALCIUM 8.4 mg/dL (8.5-10.1)
[2022-10-29 16:00] LABS: CREATININE 1.2 mg/dL (0.55-1.3)
[2022-10-29] MEDS ORDERED: ACETAMINOPHEN INJECTION 100 ML IVPB ONE (17:00)
[2022-10-29] MEDS: LACTATED RINGERS SOLUTION 1,000 ML IV SCH (18:50)
[2022-10-29] MEDS: ACETAMINOPHEN 325 MG TABLET (FP) PO PRN (21:10)
[2022-10-30] MEDS: ACETAMINOPHEN 325 MG TABLET (FP) PO PRN ×3 (09:14→23:12)
[2022-10-30] MEDS ORDERED: PATIENT'S OWN MEDICATION (NON-FORMULARY) (Insulin Glargine,Hum.Rec.Anlog [Toujeo Solostar] SQ SCH (12:45)
[2022-10-30] MEDS: LACTATED RINGERS SOLUTION 1,000 ML IV SCH (14:37)
[2022-10-30] MEDS: traMADol HCL 50 MG TABLET PO PRN (16:53)
[2022-10-30] MEDS: INSULIN (LEVEMIR) 100 UNITS/ML UNITS SQ SCH (21:49)
[2022-10-30] MEDS: INSULIN SLIDING SCALE (NOVOLOG) 1 VIAL SQ SCH (21:50)
[2022-10-30] MEDS ORDERED: INSULIN (LEVEMIR) 100 UNITS/ML UNITS SQ SCH (22:00)
[2022-10-31] MEDS: ACETAMINOPHEN 325 MG TABLET (FP) PO PRN ×2 (05:00→21:40)
[2022-10-31] MEDS: INSULIN SLIDING SCALE (NOVOLOG) 1 VIAL SQ SCH ×4 (06:21→21:40)
[2022-10-31] MEDS: CHOLECALCIFEROL (VIT D3) 400 UNIT (10 MCG) TABLET PO SCH (09:18)
[2022-10-31] MEDS: ALLOPURINOL 100 MG TABLET (FP) PO SCH (09:19)
[2022-10-31] MEDS: traMADol HCL 50 MG TABLET PO PRN (09:22)
[2022-10-31] MEDS: LACTATED RINGERS SOLUTION 1,000 ML IV SCH ×2 (10:27→15:08)
[2022-10-31] MEDS ORDERED: INSULIN (NOVOLOG) ASPART 100 UNITS/ML 10ML VIAL ONE (11:49)
[2022-10-31 18:27] LABS: EPI CELLS 4 /uL (0-25.1); HYALINE CASTS 1 /uL (0-3.1); URINE APPEARANCE CLOUDY; URINE BACTERIA >9,000 /uL (0-1359); URINE BILIRUBIN NEGATIVE (NEGATIVE); URINE COLOR YELLOW; URINE GLUCOSE (UA) NEGATIVE (NEGATIVE); URINE KETONE 1+ (NEGATIVE); URINE LEUK ESTERASE 3+ (NEGATIVE); URINE NITRITE POSITIVE (NEGATIVE); URINE PROTEIN 3+ (NEGATIVE); URINE RBC 369 /uL (0-23.9); URINE WBC 2787 /uL (0-25.8)
[2022-10-31 19:16] LABS: BASO % 0.2 % (0-2.0); EOS % 0.1 % (0-4.5); HEMATOCRIT 29.2 % (35.4-49); HEMOGLOBIN 9.7 GM/dL (11.7-16.9); LYMPH % 11.4 % (8-40); MCH 29.1 pg (25.7-33.7); MCHC 33.3 g/dl (32.0-35.9); MEAN CELL VOLUME 87.3 fl (80-96); MEAN PLT VOLUME 7.9 fl (7.5-11.1); MONO % 3.8 % (3.8-10.2); NEUT % 84.5 % (42.8-82.8); PLATELET COUNT 179 10^3/uL (134-434); RBC 3.34 M/mm3 (4.00-5.60); RDW 16.3 % (11.9-15.9); WHITE BLOOD COUNT 4.4 K/mm3 (4.0-10.0)
[2022-10-31] MEDS: INSULIN (LEVEMIR) 100 UNITS/ML UNITS SQ SCH (21:39)
[2022-10-31 21:46] LABS: ALBUMIN 2.4 g/dl (3.4-5.0); BILIRUBIN,TOTAL 0.7 mg/dL (0.2-1); BLOOD UREA NITROGEN 12.5 mg/dL (7-18); CALCIUM 8.1 mg/dL (8.5-10.1); CREATININE 1.1 mg/dL (0.55-1.3); TOT PROT 6.4 g/dl (6.4-8.2)
[2022-11-01] MEDS: ACETAMINOPHEN 325 MG TABLET (FP) PO PRN ×2 (05:47→16:46)
[2022-11-01] MEDS: LEVOTHYROXINE NA 25 MCG TABLET (FP) PO SCH ×2 (06:08→23:56)
[2022-11-01] MEDS: INSULIN SLIDING SCALE (NOVOLOG) 1 VIAL SQ SCH ×4 (06:09→22:01)
[2022-11-01 09:58] LABS: HEMATOCRIT 25.7 % (35.4-49); HEMOGLOBIN 8.7 GM/dL (11.7-16.9); MCH 29.2 pg (25.7-33.7); MCHC 33.6 g/dl (32.0-35.9); MEAN CELL VOLUME 86.8 fl (80-96); MEAN PLT VOLUME 8.5 fl (7.5-11.1); PLATELET COUNT 149 10^3/uL (134-434); RBC 2.97 M/mm3 (4.00-5.60); RDW 16.1 % (11.9-15.9); WHITE BLOOD COUNT 3.1 K/mm3 (4.0-10.0)
[2022-11-01] MEDS: ALLOPURINOL 100 MG TABLET (FP) PO SCH (10:57)
[2022-11-01] MEDS: CHOLECALCIFEROL (VIT D3) 400 UNIT (10 MCG) TABLET PO SCH (10:57)
[2022-11-01] MEDS: LACTATED RINGERS SOLUTION 1,000 ML IV SCH (16:46)
[2022-11-01] MEDS: PATIENT'S OWN MEDICATION (NON-FORMULARY) (Vit C/E/Zn/Coppr/Lutein/Zeaxan [Preservision Are PO SCH ×3 (17:22→23:57)
[2022-11-01] MEDS: [UNRECOGNIZED DRUG - OTHER] PO SCH ×2 (17:23→23:57)
[2022-11-01] MEDS: UBIDECARENONE PO SCH ×2 (17:23→23:57)
[2022-11-01] MEDS: VITAMIN E MIXED PO SCH ×2 (17:23→23:57)
[2022-11-01] MEDS ORDERED: IRON SUCROSE INJECTION 200 MG in SODIUM CHLORIDE 90 ML IVPB ONE (19:21)
[2022-11-01] MEDS: INSULIN (LEVEMIR) 100 UNITS/ML UNITS SQ SCH (21:56)
[2022-11-02] MEDS: ACETAMINOPHEN 325 MG TABLET (FP) PO PRN (02:02)
[2022-11-02] MEDS: LEVOTHYROXINE NA 25 MCG TABLET (FP) PO SCH (07:04)
[2022-11-02] MEDS: INSULIN SLIDING SCALE (NOVOLOG) 1 VIAL SQ SCH ×2 (08:03→11:02)
[2022-11-02 08:54] VITALS: RESP 20
[2022-11-02] MEDS ORDERED: ESCITALOPRAM OXALATE 10 MG TABLET PO SCH (10:00)
[2022-11-02] MEDS ORDERED: PANTOPRAZOLE 40 MG TABLET PO SCH (10:00)
[2022-11-02 10:04] LABS: HEMATOCRIT 27.1 % (35.4-49); HEMOGLOBIN 9.1 GM/dL (11.7-16.9); MCH 29.1 pg (25.7-33.7); MCHC 33.6 g/dl (32.0-35.9); MEAN CELL VOLUME 86.5 fl (80-96); PLATELET COUNT 167 10^3/uL (134-434); RBC 3.13 M/mm3 (4.00-5.60); RDW 16.2 % (11.9-15.9); WHITE BLOOD COUNT 3.7 K/mm3 (4.0-10.0)
[2022-11-02] MEDS: CHOLECALCIFEROL (VIT D3) 400 UNIT (10 MCG) TABLET PO SCH (10:53)
[2022-11-02] MEDS: ALLOPURINOL 100 MG TABLET (FP) PO SCH (10:54)
[2022-11-02 10:57] VITALS: BP 115/58; PULSE 87; TEMP 98.2
[2022-11-02 11:20] LABS: CALCIUM 8.1 mg/dL (8.5-10.1)
[2022-11-02 11:22] LABS: ALBUMIN 2.2 g/dl (3.4-5.0); BLOOD UREA NITROGEN 10.8 mg/dL (7-18)
[2022-11-02 11:26] LABS: BILIRUBIN,TOTAL 0.7 mg/dL (0.2-1); TOT PROT 5.8 g/dl (6.4-8.2)
== END 2022-11-02 11:53 | disposition home or self-care (01) | DRG 714 ==
LOC: JASU-SURG 04:20 → JASUSAT 04:20 → J6S 19:07 → J8W 11-02 00:38
PROVIDERS: ADMIT Internal Medicine; ATTEND Family Medicine
PROC: 0TJB8ZZ Inspection of Bladder, Via Natural or Artificial Opening Endoscopic (ICD-10-PCS; 2022-10-29)
PROC: 0V508ZZ Destruction of Prostate, Via Natural or Artificial Opening Endoscopic (ICD-10-PCS; principal; 2022-10-29 10:30)
PROC: 0VT08ZZ Resection of Prostate, Via Natural or Artificial Opening Endoscopic (ICD-10-PCS; 2022-10-29 10:30)
DX: N40.1 Benign prostatic hyperplasia with lower urinary tract symptoms (principal); R33.8 Other retention of urine; I10 Essential (primary) hypertension; E03.9 Hypothyroidism, unspecified; K21.9 Gastro-esophageal reflux disease without esophagitis; K44.9 Diaphragmatic hernia without obstruction or gangrene; E78.5 Hyperlipidemia, unspecified; E11.65 Type 2 diabetes mellitus with hyperglycemia; E11.40 Type 2 diabetes mellitus with diabetic neuropathy, unspecified; F32.A Depression, unspecified; N20.0 Calculus of kidney; N32.89 Other specified disorders of bladder
CPT/HCPCS: 36415; 71045-TC-FY; 74018-TC-FY; 80048; 80053; 81003; 82728; 82962; 83540; 83550; 84484; 85025; 85027; 85610; 85730; 86850; 86900; 86901; 87086; 87186; 88305-TC; 94760; J1756

== ENCOUNTER 2025-02-03 21:10 | Inpatient (IN) | payer OTHER ==
[2025-02-03 21:46] LABS: BASO % 0.2 % (0-2.0); HEMATOCRIT 52.8 % (35.4-49); HEMOGLOBIN 17.3 GM/dL (11.7-16.9); LYMPH % 9.8 % (8-40); MCH 30.8 pg (25.7-33.7); MCHC 32.7 g/dl (32.0-35.9); MEAN CELL VOLUME 94.3 fl (80-96); MEAN PLT VOLUME 9.2 fl (7.5-11.1); MONO % 5.1 % (3.8-10.2); NEUT % 84.9 % (42.8-82.8); PLATELET COUNT 335 10^3/uL (134-434); RDW 14.5 % (11.9-15.9)
[2025-02-03] MEDS ORDERED: ACETAMINOPHEN INJECTION 100 ML ONE (21:51)
[2025-02-03] MEDS ORDERED: FAMOTIDINE 20 MG/50 ML IVPB 20 MG/50 ML MG IVPB ONE (21:51)
[2025-02-03] MEDS: ACETAMINOPHEN 1000 MG/100 ML BAG IVPB ONE (22:06)
[2025-02-03] MEDS: SODIUM CHLORIDE 0.9% 500 ML INFUS.BAG IV ONE (22:06)
[2025-02-03] MEDS: LACTATED RINGERS SOLUTION 1000 ML INFUS.BAG IV ONE ×2 (22:06→22:51)
[2025-02-03] MEDS: FAMOTIDINE 20 MG/50 ML IVPB 20 MG/50 ML MG IVPB ONE (22:06)
[2025-02-03 22:11] LABS: CHLORIDE 94 mmol/L (98-107); SODIUM 132 mmol/L (136-145)
[2025-02-03 22:12] LABS: ANISOCYTOSIS 1+; CALCIUM 10.2 mg/dL (8.5-10.1); MACROCYTOSIS 0
[2025-02-03 22:13] LABS: ANION GAP 34 mmol/L (4-13); BLOOD UREA NITROGEN 25.6 mg/dL (7-18); CO2 4 mmol/L (21-32)
[2025-02-03 22:16] LABS: CREATININE 2.6 mg/dL (0.55-1.3)
[2025-02-03 22:29] LABS: MAGNESIUM 2.3 mg/dL (1.8-2.4)
[2025-02-03 22:34] LABS: GLUCOSE,RANDOM 648 mg/dL (74-106)
[2025-02-03 22:37] LABS: N-TERMINAL BNP 241.8 pg/ml (5-125)
[2025-02-03 22:43] LABS: VENOUS BASE EXCESS -27.9 mmol/L (-2-2); VENOUS O2 SATURATION 79.7 % (70-80); VENOUS PCO2 21.6 mmHg (38-52)
[2025-02-03 22:46] LABS: VENOUS PH 6.9 (7.310-7.410)
[2025-02-03] MEDS ORDERED: ONDANSETRON 4 MG/2 ML VIAL ONE (22:53)
[2025-02-03] MEDS ORDERED: morphine SULFATE 4 MG/ML VIAL ONE (22:53)
[2025-02-03 22:56] LABS: INR 1.03 (0.83-1.09); PROTHROMBIN TIME (PATIENT) 11.3 SEC (9.7-13.0)
[2025-02-03 22:58] LABS: ACTIVATED PTT 27.1 SECONDS (25.2-36.5)
[2025-02-03] MEDS: ONDANSETRON 4 MG/2 ML VIAL IVPUSH ONE (23:00)
[2025-02-03] MEDS: morphine CARPU-JECT 4 MG/1 ML DISP.SYRIN IVPUSH ONE (23:01)
[2025-02-03] MEDS ORDERED: PIPERACILLIN/TAZOB 4.5 GM 4.5 GM/100 ML BAG IVPB ONE (23:05)
[2025-02-03] MEDS ORDERED: VANCOMYCIN 1 GM PREMIX (F) 1 GM/200 ML BAG ONE (23:05)
[2025-02-03] MEDS: PIPERACILLIN/TAZOB 4.5 GM 4.5 GM in DEXTROSE 5%-WATER 100 ML IVPB ONE (23:05)
[2025-02-03 23:18] LABS: LACTIC ACID 6.5 mmol/L (0.4-2.0)
[2025-02-03] MEDS: INSULIN REGULAR 100 UNITS in SODIUM CHLORIDE 99 ML IVPB SCH (23:18)
[2025-02-03] MEDS: VANCOMYCIN HCL 1,500 MG in DEXTROSE 5%-WATER - 500 ML IVPB ONE (23:49)
[2025-02-04] MEDS ORDERED: KCL 10 MEQ IVPB 10 MEQ/100 ML INFUS.BAG IVPB ONE ×3 (00:15→02:36)
[2025-02-04] MEDS: KCL 10 MEQ IVPB 10 MEQ/100 ML INFUS.BAG IVPB SCH ×4 (00:23→23:25)
[2025-02-04] MEDS: LACTATED RINGERS SOLUTION 1000 ML INFUS.BAG IV ONE (00:37)
[2025-02-04 00:43] LABS: VENOUS BASE EXCESS -27.7 mmol/L (-2-2); VENOUS O2 SATURATION 74.2 % (70-80); VENOUS PCO2 25.7 mmHg (38-52)
[2025-02-04 00:49] LABS: VENOUS PH 6.888 (7.310-7.410)
[2025-02-04] MEDS: SODIUM BICARBONATE 4.2% 5 MEQ/10 ML DISP.SYRIN IVPUSH ONE (01:00)
[2025-02-04 01:14] LABS: LACTIC ACID 4.8 mmol/L (0.4-2.0)
[2025-02-04 01:35] LABS: CHLORIDE 97 mmol/L (98-107); POTASSIUM 3.4 mmol/L (3.5-5.1); SODIUM 135 mmol/L (136-145)
[2025-02-04 01:37] LABS: ALBUMIN 3.5 g/dl (3.4-5.0); ANION GAP 32 mmol/L (4-13); BLOOD UREA NITROGEN 26.3 mg/dL (7-18); CALCIUM 9.6 mg/dL (8.5-10.1); CO2 6 mmol/L (21-32)
[2025-02-04 01:40] LABS: CREATININE 2.2 mg/dL (0.55-1.3); SGOT/AST 10 U/L (15-37); SGPT/ALT 15 U/L (13-61)
[2025-02-04 01:42] LABS: BILIRUBIN,TOTAL 0.6 mg/dL (0.2-1)
[2025-02-04 01:43] LABS: ALK PHOS 92 U/L (45-117)
[2025-02-04 01:45] LABS: BILIRUBIN,DIRECT 0.2 mg/dL (0.0-0.2)
[2025-02-04 01:47] LABS: GLUCOSE,RANDOM 618 mg/dL (74-106)
[2025-02-04] MEDS ORDERED: THIAMINE HCL 200 MG/2 ML VIAL ONE (01:57)
[2025-02-04] MEDS: THIAMINE HCL 200 MG/2 ML VIAL IVPB ONE (02:00)
[2025-02-04] MEDS: SODIUM CHLORIDE 1,000 ML with POTASSIUM CHLORIDE 40 MEQ IV SCH (03:54)
[2025-02-04] MEDS: INSULIN REGULAR HUMAN 100 UNITS/ML *VIAL IVPUSH PRN (04:09)
[2025-02-04] MEDS: HEPARIN NA (PORCINE) 5,000 UNITS/ML 1ML VIAL SQ SCH (05:54)
[2025-02-04 07:09] LABS: HEMOGLOBIN 15.3 GM/dL (11.7-16.9); MCH 31.2 pg (25.7-33.7); MEAN CELL VOLUME 91.7 fl (80-96); MEAN PLT VOLUME 9.1 fl (7.5-11.1); PLATELET COUNT 187 10^3/uL (134-434); RDW 14.2 % (11.9-15.9); WHITE BLOOD COUNT 16.5 K/mm3 (4.0-10.0)
[2025-02-04 07:41] LABS: POTASSIUM 3.5 mmol/L (3.5-5.1)
[2025-02-04 07:45] LABS: BLOOD UREA NITROGEN 25.4 mg/dL (7-18); CALCIUM 9.4 mg/dL (8.5-10.1); MAGNESIUM 1.8 mg/dL (1.8-2.4)
[2025-02-04 07:48] LABS: CREATININE 2.2 mg/dL (0.55-1.3); PHOSPHOROUS 2.6 mg/dL (2.5-4.9)
[2025-02-04 07:48] LABS: EPI CELLS 7 /uL (0-25.1); HYALINE CASTS 4 /uL (0-3.1); URINE APPEARANCE CLEAR; URINE BACTERIA 8 /uL (0-1359); URINE BILIRUBIN NEGATIVE (NEGATIVE); URINE COLOR YELLOW; URINE GLUCOSE (UA) 3+ (NEGATIVE); URINE KETONE 4+ (NEGATIVE); URINE LEUK ESTERASE NEGATIVE (NEGATIVE); URINE NITRITE NEGATIVE (NEGATIVE); URINE PROTEIN 2+ (NEGATIVE); URINE RBC 28 /uL (0-23.9); URINE UROBILINOGEN 0.2 mg/dL (0.2-1.0); URINE WBC 43 /uL (0-25.8)
[2025-02-04] MEDS: PANTOPRAZOLE SODIUM 40 MG VIAL IVPUSH SCH (11:43)
[2025-02-04] MEDS: MUPIROCIN 2% TOPICAL OINTMENT FOR DECOLONIZATION NS SCH (11:43)
[2025-02-04] MEDS: LACTATED RINGERS SOLUTION 1,000 ML/1,000 ML INFUS.BAG IV SCH (11:45)
[2025-02-04 11:50] LABS: POTASSIUM 3.6 mmol/L (3.5-5.1)
[2025-02-04 11:56] LABS: CALCIUM 9.4 mg/dL (8.5-10.1)
[2025-02-04 11:57] LABS: LACTIC ACID 3.5 mmol/L (0.4-2.0)
[2025-02-04 12:00] LABS: CREATININE 2.1 mg/dL (0.55-1.3)
[2025-02-04 14:08] LABS: ARTERIAL BLD GAS O2 SATURATION 96.1 % (95-98); ARTERIAL BLOOD GAS BASE EXCESS -14.3 mmol/L (-2-2); ARTERIAL BLOOD GAS PO2 89.7 mmHg (80-100); ARTERIAL BLOOD GAS pH 7.278 (7.350-7.450)
[2025-02-04 14:13] LABS: ALLENS TEST POSITIVE
[2025-02-04 16:02] LABS: POTASSIUM 3.3 mmol/L (3.5-5.1)
[2025-02-04 16:04] LABS: CALCIUM 8.7 mg/dL (8.5-10.1)
[2025-02-04 16:05] LABS: BLOOD UREA NITROGEN 21.4 mg/dL (7-18)
[2025-02-04 16:07] LABS: CREATININE 1.9 mg/dL (0.55-1.3)
[2025-02-04 17:47] LABS: POTASSIUM 3.2 mmol/L (3.5-5.1)
[2025-02-04 17:49] LABS: BLOOD UREA NITROGEN 20.6 mg/dL (7-18); CALCIUM 8.7 mg/dL (8.5-10.1)
[2025-02-04 17:53] LABS: CREATININE 1.9 mg/dL (0.55-1.3)
[2025-02-04] MEDS: FINASTERIDE 5 MG TABLET (FP) PO SCH (18:00)
[2025-02-04] MEDS: CEFTRIAXONE 1 G/50 ML PREMIX 50 ML IVPB SCH (18:00)
[2025-02-04] MEDS: LACTATED RINGERS SOLUTION 1,000 ML with POTASSIUM CHLORIDE 40 MEQ IV ONE (19:30)
[2025-02-04] MEDS: CHLORHEXIDINE GLUCONATE 4% CLEANSER FOR DECOLONIZATION TP SCH (21:26)
[2025-02-04] MEDS: TAMSULOSIN HCL 0.4 MG CAP PO SCH (21:28)
[2025-02-04] MEDS: HYDROmorphone HCL CARPU-JECT 2 MG/1 ML DISP.SYRIN IVPUSH PRN (21:29)
[2025-02-04 22:50] LABS: POTASSIUM 3.1 mmol/L (3.5-5.1)
[2025-02-04 22:52] LABS: CALCIUM 8.5 mg/dL (8.5-10.1)
[2025-02-04 22:53] LABS: ALBUMIN 2.9 g/dl (3.4-5.0); BLOOD UREA NITROGEN 16.8 mg/dL (7-18)
[2025-02-04 22:56] LABS: CREATININE 1.6 mg/dL (0.55-1.3)
[2025-02-04 22:58] LABS: BILIRUBIN,TOTAL 0.4 mg/dL (0.2-1); TOT PROT 5.7 g/dl (6.4-8.2)
[2025-02-04] MEDS: D5-LR+20 MEQ KCL - 20 MEQ/1,000 ML INFUS.BAG IV SCH (23:23)
[2025-02-04] MEDS: MAGNESIUM SULFATE IN WATER 2 GM/50 ML IVPB IVPB ONE (23:25)
[2025-02-04] MEDS: POTASSIUM CHLORIDE TABS 20 MEQ TABLET.ER (FP) PO ONE (23:25)
[2025-02-05] MEDS ORDERED: LACTATED RINGERS SOLUTION 1,000 ML with POTASSIUM CHLORIDE 40 MEQ IV ONE ×2 (03:04→12:00)
[2025-02-05] MEDS: LEVOTHYROXINE NA 25 MCG TABLET (FP) PO SCH (05:59)
[2025-02-05 06:54] LABS: BASO % 0.1 % (0-2.0); EOS % 0.1 % (0-4.5); HEMATOCRIT 36.4 % (35.4-49); HEMOGLOBIN 12.8 GM/dL (11.7-16.9); LYMPH % 8.1 % (8-40); MCH 31.2 pg (25.7-33.7); MCHC 35.2 g/dl (32.0-35.9); MEAN CELL VOLUME 88.8 fl (80-96); MEAN PLT VOLUME 8.1 fl (7.5-11.1); MONO % 6.4 % (3.8-10.2); NEUT % 85.3 % (42.8-82.8); PLATELET COUNT 130 10^3/uL (134-434); WHITE BLOOD COUNT 9.1 K/mm3 (4.0-10.0)
[2025-02-05 07:24] LABS: CHLORIDE 112 mmol/L (98-107); POTASSIUM 3.8 mmol/L (3.5-5.1); SODIUM 140 mmol/L (136-145)
[2025-02-05 07:28] LABS: ALBUMIN 2.6 g/dl (3.4-5.0); ANION GAP 6 mmol/L (4-13); CO2 22 mmol/L (21-32)
[2025-02-05 07:29] LABS: BLOOD UREA NITROGEN 12.8 mg/dL (7-18); CALCIUM 8.4 mg/dL (8.5-10.1); GLUCOSE,RANDOM 204 mg/dL (74-106)
[2025-02-05 07:31] LABS: CREATININE 1.5 mg/dL (0.55-1.3); SGOT/AST 24 U/L (15-37); SGPT/ALT 13 U/L (13-61)
[2025-02-05 07:32] LABS: CHOLESTEROL 151 mg/dL (50-200)
[2025-02-05 07:33] LABS: LDL CHOLESTEROL (ONLY SJRH) 78 mg/dL (5-100); TOT PROT 5.4 g/dl (6.4-8.2)
[2025-02-05 07:34] LABS: BILIRUBIN,TOTAL 0.4 mg/dL (0.2-1)
[2025-02-05 07:35] LABS: ALK PHOS 61 U/L (45-117)
[2025-02-05 07:36] LABS: HDL CHOLESTEROL 48 mg/dL (40-60)
[2025-02-05 07:37] LABS: PHOSPHOROUS 0.5 mg/dL (2.5-4.9)
[2025-02-05] MEDS ORDERED: INSULIN (LEVEMIR) 100 UNITS/ML UNITS SQ SCH (08:45)
[2025-02-05] MEDS: NAPH,MB-DB/K PH,MBDB POWDER PACKET PO ONE (09:08)
[2025-02-05] MEDS: INSULIN GLARGINE (LANTUS) 100 UNITS/ML UNITS SQ SCH (09:08)
[2025-02-05] MEDS: POTASSIUM PHOSPHATE 30 MM in SODIUM CHLORIDE 500 ML IVPB ONE (10:30)
[2025-02-05] MEDS ORDERED: D5-LR+20 MEQ KCL - 20 MEQ/1,000 ML INFUS.BAG IV SCH (10:53)
[2025-02-05] MEDS ORDERED: INSULIN ASPART SLIDING SCALE (NOVOLOG) 1 VIAL SQ SCH ×2 (11:00→11:22)
[2025-02-05] MEDS: INSULIN ASPART SLIDING SCALE (NOVOLOG) 1 VIAL SQ SCH (12:22)
[2025-02-05] MEDS: LACTATED RINGERS SOLUTION 1,000 ML/1,000 ML INFUS.BAG IV SCH (12:22)
[2025-02-05] MEDS: HYDROmorphone HCL CARPU-JECT 2 MG/1 ML DISP.SYRIN IVPUSH PRN (14:25)
[2025-02-05] MEDS: ONDANSETRON 4 MG/2 ML VIAL IVPUSH PRN (14:25)
[2025-02-05 15:28] VITALS: BMI 29.2
[2025-02-05] MEDS: MAG HYDROX/AL HYDROX/SIMETH 30 ML UNIT-DOSE CUP PO ONE (18:52)
[2025-02-06 07:06] LABS: POTASSIUM 3.3 mmol/L (3.5-5.1)
[2025-02-06 07:13] LABS: ALBUMIN 2.6 g/dl (3.4-5.0)
[2025-02-06 07:14] LABS: BLOOD UREA NITROGEN 9.9 mg/dL (7-18)
[2025-02-06 07:17] LABS: CREATININE 1.2 mg/dL (0.55-1.3); PHOSPHOROUS 1.6 mg/dL (2.5-4.9)
[2025-02-06 07:18] LABS: BILIRUBIN,TOTAL 0.6 mg/dL (0.2-1); TOT PROT 5.6 g/dl (6.4-8.2)
[2025-02-06 07:25] LABS: ABSOLUTE IMMATURE GRANULOCYTES 0.09 x10^3/uL (0.0-0.031); BASOPHILS # 0.01 x10^3/uL (0.01-0.08); HEMATOCRIT 33.5 % (40.1-51.0); MCHC 35.8 g/dl (32.3-36.5); MEAN CELL VOLUME 87.5 fl (79.0-92.2); MEAN PLT VOLUME 10.3 fl (9.4-12.4); MONOCYTE # 0.53 x10^3/uL (0.30-0.82); PLATELET COUNT # 119 x10^3/uL (163-337); RDW 14.2 % (12.2-16.6)
[2025-02-06] MEDS: POTASSIUM PHOSPHATE 30 MM in SODIUM CHLORIDE 500 ML IVPB ONE (13:38)
[2025-02-06] MEDS ORDERED: LABETALOL HCL 20 MG/4 ML VIAL IVPUSH ONE (14:44)
[2025-02-06] MEDS: LACTATED RINGERS SOLUTION 1,000 ML/1,000 ML INFUS.BAG IV SCH (21:04)
[2025-02-06 22:29] LABS: POTASSIUM 3.5 mmol/L (3.5-5.1)
[2025-02-06 22:30] LABS: CALCIUM 7.8 mg/dL (8.5-10.1)
[2025-02-06 22:31] LABS: BLOOD UREA NITROGEN 8.6 mg/dL (7-18)
[2025-02-07] MEDS: INSULIN GLARGINE (LANTUS) 100 UNITS/ML UNITS SQ ONE (00:31)
[2025-02-07] MEDS: INSULIN GLARGINE (LANTUS) 100 UNITS/ML UNITS SQ SCH ×2 (07:30→21:20)
[2025-02-07 07:56] LABS: ABSOLUTE IMMATURE GRANULOCYTES 0.06 x10^3/uL (0.0-0.031); BASOPHILS # 0.02 x10^3/uL (0.01-0.08); EOSINOPHIL % 0.2 % (0.8-7.0); EOSINOPHILS # 0.02 x10^3/uL (0.04-0.54); HEMATOCRIT 32.6 % (40.1-51.0); HEMOGLOBIN 11.2 g/dL (13.7-17.5); MCHC 34.4 g/dl (32.3-36.5); MEAN CELL VOLUME 88.8 fl (79.0-92.2); MEAN PLT VOLUME 10.5 fl (9.4-12.4); MONOCYTE # 0.52 x10^3/uL (0.30-0.82); PLATELET COUNT # 131 x10^3/uL (163-337); RDW 14.5 % (12.2-16.6)
[2025-02-07 08:17] LABS: POTASSIUM 3.1 mmol/L (3.5-5.1)
[2025-02-07 08:22] LABS: ALBUMIN 2.3 g/dl (3.4-5.0); BLOOD UREA NITROGEN 8.6 mg/dL (7-18); CALCIUM 7.9 mg/dL (8.5-10.1); MAGNESIUM 1.9 mg/dL (1.8-2.4)
[2025-02-07 08:26] LABS: BILIRUBIN,TOTAL 0.6 mg/dL (0.2-1); CREATININE 1.1 mg/dL (0.55-1.3); PHOSPHOROUS 1.8 mg/dL (2.5-4.9); TOT PROT 5.4 g/dl (6.4-8.2)
[2025-02-07] MEDS ORDERED: HYDROmorphone HCL CARPU-JECT 2 MG/1 ML DISP.SYRIN IVPUSH PRN ×2 (14:39)
[2025-02-07] MEDS ORDERED: ONDANSETRON 4 MG/2 ML VIAL IVPUSH PRN (14:39)
[2025-02-07] MEDS: INSULIN ASPART SLIDING SCALE (NOVOLOG) 1 VIAL SQ SCH (17:19)
[2025-02-07] MEDS: HEPARIN NA (PORCINE) 5,000 UNITS/ML 1ML VIAL SQ SCH (21:19)
[2025-02-07] MEDS: TAMSULOSIN HCL 0.4 MG CAP PO SCH (21:20)
[2025-02-07] MEDS ORDERED: CHLORHEXIDINE GLUCONATE 4% CLEANSER FOR DECOLONIZATION TP SCH (22:00)
[2025-02-08] MEDS: LEVOTHYROXINE NA 25 MCG TABLET (FP) PO SCH (06:07)
[2025-02-08] MEDS ORDERED: PANTOPRAZOLE SODIUM 40 MG VIAL IVPUSH SCH (10:00)
[2025-02-08] MEDS: FINASTERIDE 5 MG TABLET (FP) PO SCH (10:09)
[2025-02-08] MEDS: CEFTRIAXONE 1 G/50 ML PREMIX 50 ML IVPB SCH (10:09)
[2025-02-08] MEDS: PANTOPRAZOLE 40 MG TABLET PO SCH (10:09)
[2025-02-08 10:33] LABS: HEMATOCRIT 32.5 % (40.1-51.0); HEMOGLOBIN 11.4 g/dL (13.7-17.5); MCHC 35.1 g/dl (32.3-36.5); MEAN CELL VOLUME 88.3 fl (79.0-92.2); MEAN PLT VOLUME 9.5 fl (9.4-12.4); PLATELET COUNT # 145 x10^3/uL (163-337); RDW 14.3 % (12.2-16.6)
[2025-02-08 11:07] LABS: CALCIUM 7.9 mg/dL (8.5-10.1)
[2025-02-08 11:08] LABS: ALBUMIN 2.2 g/dl (3.4-5.0); BLOOD UREA NITROGEN 8.8 mg/dL (7-18)
[2025-02-08 11:12] LABS: BILIRUBIN,TOTAL 0.7 mg/dL (0.2-1); TOT PROT 5.3 g/dl (6.4-8.2)
[2025-02-08] MEDS: POTASSIUM CHLORIDE TABS 20 MEQ TABLET.ER (FP) PO ONE ×2 (12:50→19:57)
[2025-02-08] MEDS ORDERED: POTASSIUM CHLORIDE ORAL LIQUID 20 MEQ/15 ML PO ONE (17:00)
[2025-02-09] MEDS ORDERED: ONDANSETRON *ODT* 4 MG TABLET SL PRN (10:52)
[2025-02-09 12:25] LABS: HEMATOCRIT 33.8 % (40.1-51.0); MCHC 35.5 g/dl (32.3-36.5); MEAN CELL VOLUME 87.3 fl (79.0-92.2); MEAN PLT VOLUME 9.3 fl (9.4-12.4); PLATELET COUNT # 167 x10^3/uL (163-337)
[2025-02-09 12:55] LABS: CALCIUM 7.9 mg/dL (8.5-10.1)
[2025-02-09 12:56] LABS: BLOOD UREA NITROGEN 7.9 mg/dL (7-18)
[2025-02-09 12:59] LABS: CREATININE 0.8 mg/dL (0.55-1.3)
[2025-02-09 13:01] LABS: MAGNESIUM 1.8 mg/dL (1.8-2.4)
[2025-02-09] MEDS: KCL 10 MEQ IVPB 10 MEQ/100 ML INFUS.BAG IVPB SCH (17:18)
[2025-02-09] MEDS: POTASSIUM CHLORIDE ORAL LIQUID 20 MEQ/15 ML PO SCH (21:22)
[2025-02-10] MEDS: oxyCODONE HCL 5 MG TABLET PO PRN (01:03)
[2025-02-10 07:24] LABS: POTASSIUM 3.1 mmol/L (3.5-5.1)
[2025-02-10 07:26] LABS: BLOOD UREA NITROGEN 9.1 mg/dL (7-18); MAGNESIUM 1.9 mg/dL (1.8-2.4)
[2025-02-10 07:30] LABS: CREATININE 0.9 mg/dL (0.55-1.3)
[2025-02-10] MEDS: POTASSIUM CHLORIDE ORAL LIQUID 20 MEQ/15 ML PO SCH (22:06)
[2025-02-10] MEDS: INSULIN GLARGINE (LANTUS) 100 UNITS/ML UNITS SQ SCH (22:07)
[2025-02-11] MEDS: LEVOTHYROXINE NA 25 MCG TABLET (FP) PO SCH (06:13)
[2025-02-11 07:24] LABS: POTASSIUM 3.7 mmol/L (3.5-5.1)
[2025-02-11 07:25] LABS: CALCIUM 8.5 mg/dL (8.5-10.1)
[2025-02-11 07:26] LABS: BLOOD UREA NITROGEN 11.2 mg/dL (7-18); MAGNESIUM 1.9 mg/dL (1.8-2.4)
[2025-02-12 16:00] VITALS: BP 130/65; PULSE 99; RESP 19; TEMP 97.9
== END 2025-02-12 16:25 | DRG 637 ==
LOC: JER 21:10 → JERBED 22:27 → JICU 02-04 03:52 → J4W 02-06 22:00
PROVIDERS: ADMIT Family Medicine; ATTEND Family Medicine
DX: E11.10 Type 2 diabetes mellitus with ketoacidosis without coma (principal); J18.9 Pneumonia, unspecified organism; K85.90 Acute pancreatitis without necrosis or infection, unspecified; N17.9 Acute kidney failure, unspecified; J98.11 Atelectasis; I10 Essential (primary) hypertension; E03.9 Hypothyroidism, unspecified; E78.5 Hyperlipidemia, unspecified; K21.9 Gastro-esophageal reflux disease without esophagitis; D72.829 Elevated white blood cell count, unspecified; N40.0 Benign prostatic hyperplasia without lower urinary tract symptoms; F32.A Depression, unspecified; R33.9 Retention of urine, unspecified; E86.0 Dehydration
CPT/HCPCS: 0241U-QW; 36415; 36600; 70450-TC; 71045-TC-FY; 71250-TC; 74176-TC; 74177-TC; 76705-TC; 80048; 80053; 80061; 80076; 80307; 81003; 82010; 82550; 82607; 82803; 82962; 83036; 83605; 83615; 83690; 83735; 83880; 84100; 84443; 84478; 84484; 85025; 85027; 85610; 85730; 86780; 86850; 86900; 86901; 87040; 93005; 93010; 97116-GP; 97162-GP; 99291; J0131; J1644; Q9967